=== PATIENT | female | born 1990 | race American Indian/Alaskan Native ===

== ENCOUNTER 2020-07-30 12:06 | Emergency (ER) | payer OTHER ==
[2020-07-30 12:17] VITALS: BP 110/69
--- NOTE | 2020-07-30 12:23 | Event Note ---
ED Screening Note ED Screening Note: called arnulfo Watersier lmp 11- ab 1 ectopic 01/18 co abd l side worse with cough or sneeze no dysruia pos back pain This initial assessment/diagnostic orders/clinical plan/treatment(s) is/are subject to change based on patients health status, clinical progression and re- assessment by fellow clinical providers in the ED. Further treatment and workup at subsequent clinical providers discretion. Patient/guardian urged not to elope from the ED as their condition may be serious if not clinically assessed and managed. Initial orders include: ro ectopic
[2020-07-30 12:49] LABS: Mucus,Urine 3+ /HPF
[2020-07-30 13:35] LABS: Bilirubin,Urine NEG (Negative); Blood,Urine MOD (Negative); Color,Urine Yellow (Yellow); Urobilinogen,Urine < 2.0 mg/dL (<2.0)
[2020-07-30 13:37] LABS: Bacteria,Urine 1+ /HPF (Negative)
[2020-07-30 13:45] LABS: Hematocrit 38.2 % (30.3-42.9); Hemoglobin 12.8 gm/dl (10.1-14.3); Mean Corpuscular HGB Conc 34 % (30-34); Mean Corpuscular Volume 102 fl (79-97); Platelet Count 227 K/mm3 (140-440); Red Blood Count 3.74 M/mm3 (3.65-5.03); Red Cell Distribution Width 14.3 % (13.2-15.2)
--- NOTE | 2020-07-30 13:51 | Ultrasound Report ---
ULTRASOUND OBSTETRIC INDICATION / CLINICAL INFORMATION: Vaginal bleeding. Clinical Gestational Age (GA): 7 weeks weeks. 1 days TECHNIQUE: Transabdominal and Transvaginal. COMPARISON: None available. FINDINGS: GESTATIONAL SAC: Well-defined oval shape and intrauterine in location. YOLK SAC: No significant abnormality. EMBRYO/FETUS: No significant abnormality. - [place]-Rump Length = 0.54 cm = 6 weeks. 2 days - Heart Rate, beats per minute (if present) = 111 ADNEXA: Complex right ovarian cyst measures 2.9 cm and likely represents a corpus luteal cyst. FREE FLUID: None. ADDITIONAL FINDINGS: No evidence of subchorionic hemorrhage. IMPRESSION: 1. Single, living intrauterine with estimated sonographic age of 6 weeks. 2 days. Signer Name: Chaparro King MD Signed: 07/30/2020 1:46 PM Workstation Name: [id number]
--- NOTE | 2020-07-30 13:51 | Ultrasound Report ---
ULTRASOUND OBSTETRIC INDICATION / CLINICAL INFORMATION: Vaginal bleeding. Clinical Gestational Age (GA): 7 weeks weeks. 1 days TECHNIQUE: Transabdominal and Transvaginal. COMPARISON: None available. FINDINGS: GESTATIONAL SAC: Well-defined oval shape and intrauterine in location. YOLK SAC: No significant abnormality. EMBRYO/FETUS: No significant abnormality. - [place]-Rump Length = 0.54 cm = 6 weeks. 2 days - Heart Rate, beats per minute (if present) = 111 ADNEXA: Complex right ovarian cyst measures 2.9 cm and likely represents a corpus luteal cyst. FREE FLUID: None. ADDITIONAL FINDINGS: No evidence of subchorionic hemorrhage. IMPRESSION: 1. Single, living intrauterine with estimated sonographic age of 6 weeks. 2 days. Signer Name: Chaparro King MD Signed: 07/30/2020 1:46 PM Workstation Name: [id number]
[2020-07-30 13:54] LABS: Blood Urea Nitrogen 6 mg/dL (7-17); Calcium 9.4 mg/dL (8.4-10.2); Hemolysis Index 11
--- NOTE | 2020-07-30 13:59 | Emergency Department Report ---
ED Female HPI - General Chief complaint: Abdominal Pain Stated complaint: 6 WEEKS ABD PAIN Time Seen by Provider: 07/30/20 12:17 Source: patient Mode of arrival: Ambulatory Limitations: No Limitations - History of Present Illness Initial comments: LMP 06/10 AB 1 ECTOPIC 1 PT COMES TO ER W 3 D HX ABD PAIN AND SPOTTING WITH URINATION AMBULATORY NON ILL NONTOXIC APPEARING -: Gradual, days(s) Severity: mild Improves with: none Worsens with: none Are you Now?: Yes - Related Data Sexually active: Yes Previous Rx's Medication Instructions Recorded Last Taken Type Nitrofurantoin [place]/M-Cryst 100 mg PO Q12HR #10 capsule 07/30/20 Unknown Rx [Macrobid CAP] Allergies Allergy/AdvReac Type Severity Reaction Status Date / Time ondansetron [From Zofran] Allergy Swelling Verified 07/30/20 12:16 sulfamethoxazole Allergy Swelling Verified 07/30/20 12:16 [From Bactrim] trimethoprim [From Bactrim] Allergy Swelling Verified 07/30/20 12:16 ED Review of Systems ROS: Stated complaint: 6 WEEKS ABD PAIN Other details as noted in HPI Comment: All other systems reviewed and negative ED Past Medical Hx - Past Medical History Previous Medical History?: No - Surgical History Past Surgical History?: No - Family History Family history: no significant - Social History Smoking Status: Never Smoker Substance Use Type: None - Medications Home Medications: Home Medications Medication Instructions Recorded Confirmed Last Taken Type Nitrofurantoin [place]/M-Cryst 100 mg PO Q12HR #10 capsule 07/30/20 Unknown Rx [Macrobid CAP] ED Physical Exam - General Limitations: No Limitations General appearance: alert, in no apparent distress - Head Head exam: Present: atraumatic, normocephalic - Eye Eye exam: Present: normal appearance - ENT ENT exam: Present: mucous membranes moist - Neck Neck exam: Present: normal inspection - Respiratory Respiratory exam: Present: normal lung sounds bilaterally. Absent: respiratory distress - Cardiovascular Cardiovascular Exam: Present: regular rate, normal rhythm. Absent: systolic murmur, diastolic murmur, rubs, gallop - GI/Abdominal GI/Abdominal exam: Present: soft, normal bowel sounds - Extremities Exam Extremities exam: Present: normal inspection - Back Exam Back exam: Present: normal inspection - Neurological Exam Neurological exam: Present: alert, oriented X3 - Psychiatric Psychiatric exam: Present: normal affect, normal mood - Skin Skin exam: Present: warm, dry, intact, normal color. Absent: rash ED Course Vital Signs 07/30/20 12:17 Temperature 98.3 F Pulse Rate 92 H Respiratory 16 Rate Blood Pressure 110/69 O2 Sat by Pulse 97 Oximetry ED Medical Decision Making - Lab Data Result diagrams: 07/30/20 13:04 07/30/20 13:04 - Radiology Data Radiology results: report reviewed, image reviewed IUP - Medical Decision Making Vital Signs 07/30/20 12:17 Temperature 98.3 F Pulse Rate 92 H Respiratory 16 Rate Blood Pressure 110/69 O2 Sat by Pulse 97 Oximetry Lab Results 07/30/20 07/30/20 07/30/20 Range/Units 13:04 13:04 Unknown WBC 5.9 (4.5-11.0) K/mm3 RBC 3.74 (3.65-5.03) M/mm3 Hgb 12.8 (10.1-14.3) gm/dl Hct 38.2 (30.3-42.9) % MCV 102 H (79-97) fl MCH 34 H (28-32) pg MCHC 34 (30-34) % RDW 14.3 (13.2-15.2) % Plt Count 227 (140-440) K/mm3 Sodium 134 L (137-145) mmol/L Potassium 4.3 (3.6-5.0) mmol/L Chloride 101.5 (98-107) mmol/L Carbon Dioxide 26 (22-30) mmol/L Anion Gap 11 mmol/L BUN 6 L (7-17) mg/dL Glucose 86 (65-100) mg/dL Calcium 9.4 (8.4-10.2) mg/dL Urine Color Yellow (Yellow) Urine Turbidity Cloudy (Clear) Urine pH 6.0 (5.0-7.0) Ur Specific [place] 1.023 (1.003-1.030) Urine Protein 30 mg/dl (Negative) mg/dL Urine Glucose (UA) Neg (Negative) mg/dL Urine Ketones Neg (Negative) mg/dL Urine Blood Mod (Negative) Urine Nitrite Neg (Negative) Ur Reducing Substances Not Reportable Urine Bilirubin Neg (Negative) Urine Ictotest Not Reportable Urine Urobilinogen < 2.0 (<2.0) mg/dL Ur Leukocyte Esterase Sm (Negative) Urine WBC (Auto) 6.0 (0.0-6.0) /HPF Urine RBC (Auto) 6.0 (0.0-6.0) /HPF U Epithel Cells (Auto) 43.0 H (0-13.0) /HPF Urine Bacteria (Auto) 1+ (Negative) /HPF Urine Mucus 3+ /HPF Blood Type Ord Rhogam Gestat Weeks WEEKS 07/30/20 Range/Units Unknown WBC (4.5-11.0) K/mm3 RBC (3.65-5.03) M/mm3 Hgb (10.1-14.3) gm/dl Hct (30.3-42.9) % MCV (79-97) fl MCH (28-32) pg MCHC (30-34) % RDW (13.2-15.2) % Plt Count (140-440) K/mm3 Sodium (137-145) mmol/L Potassium (3.6-5.0) mmol/L Chloride (98-107) mmol/L Carbon Dioxide (22-30) mmol/L Anion Gap mmol/L BUN (7-17) mg/dL Glucose (65-100) mg/dL Calcium (8.4-10.2) mg/dL Urine Color (Yellow) Urine Turbidity (Clear) Urine pH (5.0-7.0) Ur Specific [place] (1.003-1.030) Urine Protein (Negative) mg/dL Urine Glucose (UA) (Negative) mg/dL Urine Ketones (Negative) mg/dL Urine Blood (Negative) Urine Nitrite (Negative) Ur Reducing Substances Urine Bilirubin (Negative) Urine Ictotest Urine Urobilinogen (<2.0) mg/dL Ur Leukocyte Esterase (Negative) Urine WBC (Auto) (0.0-6.0) /HPF Urine RBC (Auto) (0.0-6.0) /HPF U Epithel Cells (Auto) (0-13.0) /HPF Urine Bacteria (Auto) (Negative) /HPF Urine Mucus /HPF Blood Type O POSITIVE Ord Rhogam Gestat Weeks Rh pos WEEKS US NOTED LABS NOTED UA NOTED RH POS PT DC HOME WITH OBGYN FOLLOW UP FOR INTERVAL CHANGE PT VEREBALIZES UNDERSTANDING OF DC POC. - Differential Diagnosis RO ECTOPIC/AB Critical care attestation.: If time is entered above; I have spent that time in minutes in the direct care of this critically ill patient, excluding procedure time. ED Disposition Clinical Impression: , Abdominal pain, UTI (urinary tract infection) Disposition: TO HOME OR SELFCARE Is pt being admited?: No Does the pt Need Aspirin: No Condition: Stable Instructions: First Trimester of , Pbno-st-Vbnm, Abdominal Pain (ED) Additional Instructions: VAGINAL REST- NO SEX/ NO TAMPON TYLENOL FOR PAIN NO ALCOHOL SEE OB PLANNED Prescriptions: Nitrofurantoin [place]/M-Cryst [Macrobid CAP] 100 mg PO Q12HR #10 capsule Referrals: LUCY SANTILLAN CNM [Staff Physician] - 3-5 Days ELIZABETH RITCHIE MD [Staff Physician] - 3-5 Days Forms: Work/School Release Form(ED) Time of Disposition: 14:02
[2020-07-30 14:04] LABS: BUN/Creatinine Ratio 10
== END 2020-07-30 14:02 | disposition home or self-care (01) ==
LOC: ED 12:06
DX: O23.41 Unspecified infection of urinary tract in pregnancy, first trimester (principal); O26.891 Other specified pregnancy related conditions, first trimester; R10.9 Unspecified abdominal pain; Z3A.01 Less than 8 weeks gestation of pregnancy; Z79.899 Other long term (current) drug therapy; Z88.8 Allergy status to other drugs, medicaments and biological substances
CPT/HCPCS: 36415; 76801; 76817; 76830; 80048; 81001; 84702; 85027; 86900; 86901; 87086

== ENCOUNTER 2021-01-14 12:33 | Outpatient (CLI) | payer OTHER ==
[2021-01-14] MEDS ORDERED: LACTATED RINGERS 1,000 ML IV ONE (13:05)
[2021-01-14 13:12] VITALS: BP 110/68
[2021-01-14 13:22] LABS: Bacteria,Urine 2+ /HPF (Negative); Bilirubin,Urine NEG (Negative); Blood,Urine NEG (Negative); Color,Urine Yellow (Yellow); Mucus,Urine FEW /HPF; Protein,Urine <15 mg/dL mg/dL (Negative); Urobilinogen,Urine < 2.0 mg/dL (<2.0)
--- NOTE | 2021-01-14 15:20 | Ultrasound Report ---
ULTRASOUND BIOPHYSICAL PROFILE INDICATION / CLINICAL INFORMATION: bpp/tiff. COMPARISON: None available. FINDINGS: BREATHING MOVEMENT = 2 GROSS BODY MOVEMENT = 2 TONE = 2 QUALITATIVE AMNIOTIC FLUID VOLUME = 2 TOTAL BIOPHYSICAL SCORE = 03/07 AMNIOTIC FLUID INDEX (cm) = 16 PRESENTATION: Cephalic. HEART RATE (beats per minute): 170 IMPRESSION: 1. biophysical profile = 03/07 Signer Name: Alex Ramos MD Signed: 01/14/2021 3:07 PM Workstation Name: [email or web address]
== END 2021-01-14 15:30 | disposition home or self-care (01) ==
LOC: TRG 12:33 → APU 12:34 → TRG 15:30
PROVIDERS: ATTEND Obstetrics & Gynecology
DX: Z34.93 Encounter for supervision of normal pregnancy, unspecified, third trimester (principal); Z3A.31 31 weeks gestation of pregnancy
CPT/HCPCS: 59025; 76815; 76819; 81001

== ENCOUNTER 2021-03-07 14:39 | Inpatient (IN) | payer OTHER ==
[2021-03-07] MEDS ORDERED: LACTATED RINGERS 1,000 ML ONE (15:37)
[2021-03-07] MEDS ORDERED: AMPICILLIN/NS 2 GM/100 ML 2 GM/100 ML BAG IV ONE ×2 (15:39→16:00)
[2021-03-07] MEDS ORDERED: miSOPROStol 200 MCG TAB PR PRN (16:00)
[2021-03-07] MEDS ORDERED: OXYTOCIN DRIP 30 UNITS/500 ML BAG IV SCH ×2 (16:00)
[2021-03-07] MEDS ORDERED: LOPERAMIDE 2 MG CAP PO PRN (16:00)
[2021-03-07] MEDS ORDERED: ePHEDrine SULFATE 50 MG/1 ML INJ IV PRN ×2 (16:00→18:25)
[2021-03-07] MEDS ORDERED: BUTORPHANOL 2 MG/1 ML INJ IV PRN (16:00)
[2021-03-07] MEDS ORDERED: TERBUTALINE 1 MG/1 ML INJ SUB-Q PRN (16:00)
[2021-03-07] MEDS ORDERED: METHYLERGONOVINE MALEATE 0.2 MG/ML VIAL IM PRN (16:00)
[2021-03-07] MEDS ORDERED: OXYTOCIN 10 UNIT/1 ML INJ IM PRN (16:00)
[2021-03-07] MEDS ORDERED: CARBOPROST TROMETHAMINE 250 MCG/1 ML INJ IM PRN (16:00)
[2021-03-07] MEDS ORDERED: LIDOCAINE (2%) 20 MG/1 ML VIAL 20 ML MDV INFILTRATI ONE (16:00)
[2021-03-07] MEDS ORDERED: MINERAL OIL 30 ML ORAL LIQD PO PRN (16:00)
[2021-03-07] MEDS ORDERED: LACTATED RINGERS 1,000 ML IV SCH (16:00)
[2021-03-07 16:38] LABS: Hematocrit 35.2 % (30.3-42.9); Mean Corpuscular HGB Conc 34 % (30-34); Mean Corpuscular Volume 92 fl (79-97); Platelet Count 146 K/mm3 (140-440); Red Blood Count 3.85 M/mm3 (3.65-5.03); Red Cell Distribution Width 19.4 % (13.2-15.2)
[2021-03-07] MEDS ORDERED: fentaNYL-BUPIV 2 MCG/ML-0.125% 200 MCG/100 ML BAG EPIDURAL ONE (18:08)
[2021-03-07] MEDS ORDERED: NALOXONE 2 MG/2 ML INJ IV PRN (18:25)
--- NOTE | 2021-03-07 18:26 | Anesthesia Consultation ---
Anesthesia Consult and Med Hx Date of service: 03/07/21 - Airway Anesthetic Teeth Evaluation: Good ROM Head & Neck: Adequate Mental/Hyoid Distance: Adequate Mallampati Class: Class II Intubation Access Assessment: Probably Good - Pulmonary Exam CTA: Yes - Cardiac Exam Cardiac Exam: RRR - Pre-Operative Health Status ASA Pre-Surgery Classification: ASA2 Proposed Anesthetic Plan: Epidural - Pulmonary Hx Asthma: No (l) COPD: No Hx Pneumonia: No - Cardiovascular System Hx Hypertension: No - Central Nervous System Hx Seizures: No Hx Psychiatric Problems: No - Endocrine Hx Renal Disease: No Hx End Stage Renal Disease: No Hx Hypothyroidism: No Hx Hyperthyroidism: No - Hematic Hx Anemia: Yes Hx Sickle Cell Disease: No - Other Systems Hx Alcohol Use: No
--- NOTE | 2021-03-07 18:27 | Progress Note ---
Labor Epidural - Labor Epidural Start Time: 18:13 Stop Time: 18:22 Performed by:: TOREY TAMEZ Procedure: Patient is requesting epidural for labor pain. H&P, and labs reviewed. Procedure explained, questions answered, consent obtained. Patient in sitting position with blood pressure cuff and pulse ox on and working. Timeout performed immediately before start of procedure. Sterile chlorahexadine 0.5% prep/drape. 3 mL 1% lidocaine skin wheal at L[3]-L[4]. 18-gauge Process System Enterprisetead epidural needle advanced to [id number] with saline at [7] cm. Epidural catheter advanced to [12] cm, negative aspiration for blood and csf, negative test dose 3 ml 1.5% lidocaine with epinephrine. Epidural dexmedetomidine [30] mcg administered. Sterile steri-strips and tegaderm applied, followed by tape reinforcement. Patient tolerated procedure well. SRNA
[2021-03-07] MEDS ORDERED: fentaNYL-BUPIV 2 MCG/ML-0.125% 200 MCG/100 ML BAG EPIDURAL SCH (19:00)
--- NOTE | 2021-03-07 19:06 | History and Physical Report ---
History of Present Illness Date of examination: 03/07/21 Date of admission: 03/07 Chief complaint: I am in labor History of present illness: Patient is a 30-year-old 3 para 0 who presents complaining of contractions. Patient is very 7 cm on admission. Her EDC is 03/17/2021. Patient receives care with [facility] however records not available for re view. Past History Past Medical History: no pertinent history Past Surgical History: no surgical history Family/Genetic History: none Social history: single - Obstetrical History Expected Date of Delivery: 03/17/21 Actual Gestation: 38 Week(s) 4 Day(s) : 3 Para: 0 Medications and Allergies Allergies Allergy/AdvReac Type Severity Reaction Status Date / Time ondansetron [From Zofran] Allergy Swelling Verified 07/30/20 12:16 sulfamethoxazole Allergy Swelling Verified 07/30/20 12:16 [From Bactrim] trimethoprim [From Bactrim] Allergy Swelling Verified 07/30/20 12:16 Home Medications Medication Instructions Recorded Confirmed Last Taken Type Nitrofurantoin [place]/M-Cryst 100 mg PO Q12HR #10 capsule 07/30/20 03/07/21 Unknown Rx [Macrobid CAP] Active Meds: Active Medications Butorphanol Tartrate (Butorphanol 2 Mg/1 Ml Inj) 2 mg IV Q2H PRN PRN Reason: Labor Pain Last Admin: 03/07/21 16:48 Dose: 1 mg Documented by: Carboprost Tromethamine (Carboprost Tromethamine 250 Mcg/1 Ml Inj) 250 mcg IM ONCE PRN PRN Reason: Uterine Bleeding Ephedrine Sulfate (Ephedrine Sulfate 50 Mg/1 Ml Inj) 10 mg IV Q2M PRN PRN Reason: Hypotension Oxytocin/Sodium Chloride (Pitocin/Ns 30 Unit/500ml) 30 units in 500 mls @ 2 mls/hr IV TITR LINDSAY; Protocol Last Admin: 03/07/21 18:30 Dose: 2 ml/hr, 2 mls/hr Documented by: Lactated Ringer's (Lactated Ringers) 1,000 mls @ 125 mls/hr IV DIRECT LINDSAY Last Admin: 03/07/21 16:00 Dose: 125 mls/hr Documented by: Oxytocin/Sodium Chloride (Pitocin/Ns 30 Unit/500ml) 30 units in 500 mls @ 40 mls/hr IV TITR LINDSAY; Protocol Ampicillin Sodium (Ampicillin/Ns 1 Gm/50 Ml) 1 gm in 50 mls @ 100 mls/hr IV Q4H LINDSAY; Protocol Fentanyl/Bupivacaine/Sodium Chlor (Fentanyl-Bupiv 2 Mcg/Ml-0.125%) 200 mcg in 100 mls @ 12 mls/hr EPIDURAL TITR LINDSAY; Protocol Loperamide HCl (Loperamide 2 Mg Cap) 2 mg PO ONCE PRN PRN Reason: give with Hemabate Methylergonovine Maleate (Methylergonovine Maleate 0.2 Mg/Ml Vial) 0.2 mg IM ONCE PRN PRN Reason: Uterine Bleeding Mineral Oil (Mineral Oil 30 Ml Oral Liqd) 30 ml PO QHS PRN PRN Reason: Constipation Misoprostol (Misoprostol 200 Mcg Tab) 800 mcg [place] ONCE PRN PRN Reason: Uterine Bleeding Naloxone HCl (Naloxone 2 Mg/2 Ml Inj) 0.2 mg IV Q5M PRN PRN Reason: Respiratory sedation Oxytocin (Oxytocin 10 Unit/1 Ml Inj) 10 unit IM ONCE PRN PRN Reason: Uterine Bleeding Terbutaline Sulfate (Terbutaline 1 Mg/1 Ml Inj) 0.25 mg SUB-Q ONCE PRN PRN Reason: Hyperstimulation/Hypertonicity Review of Systems All systems: negative Constitutional: weight gain Genitourinary: pelvic pain, contractions - Vital Signs Vital signs: Vital Signs Temp Resp 98 F 20 03/07/21 15:15 03/07/21 15:15 Temp Pulse Resp BP Pulse Ox 98.1 F 66 18 112/64 98 03/07/21 16:17 03/07/21 18:52 03/07/21 16:48 03/07/21 18:49 03/07/21 18:52 - Physical Exam Breasts: Cardiovascular: Regular rate, Normal S1, Normal S2 Lungs: Positive: Clear to auscultation, Normal air movement Abdomen: Positive: normal appearance, soft, normal bowel sounds. Negative: distention, tenderness Genitourinary (Female): Positive: normal external genitalia, normal perenium Vulva: both: normal Vagina: Positive: normal moisture. Negative: discharge Cervix: Negative: lesion, discharge Uterus: Positive: normal size, normal contour Adnexa: both: normal Anus/Rectum: Positive: normal perianal skin, heme negative. Negative: rectal mass, hemorrhoids Extremities: Deep Tendon Reflex Grade: Normal +2 - Obstetrical Cervical Dilatation: 7 Cervical Effacement Percentage: 80 station: -1 Uterine Contraction Pattern: Regular Uterine Tone Measurement Phase: Contraction Results Result Diagrams: 03/07/21 15:30 Abnormal lab results 03/07/21 Range/Units 15:30 RDW 19.4 H (13.2-15.2) % All other labs normal. Assessment and Plan IUP at 30-4/7 weeks in labor. Admit to labor and delivery. We will treat for GBS unknown. Attempt to get records in the morning. Anticipate .
[2021-03-07] MEDS ORDERED: AMPICILLIN/NS 1 GM/50 ML 1 GM/50 ML BAG IV SCH (20:00)
--- NOTE | 2021-03-07 20:47 | Procedure Note ---
OB Delivery Note - Delivery Date of Delivery: 03/07/21 Surgeon: LYDIA ALVAREZ Estimated blood loss: 200cc - Vaginal Delivery presentation: vertex Delivery position: OA Intrapartum events: none Delivery induction: none Delivery augmentation: rupture of membranes, pitocin Delivery monitor: external FHT, external uterine Route of delivery: Delivery placenta: spontaneous Delivery cord: nuchal cord, 3 umbilical vessels Delivery laceration: 2nd degree Anesthesia: epidural Delivery comments: Viable male delivered over intact perineum at 8:30/p.m. had tight nuchal cord that was clamped and cut on the perineum. Infant had spontaneous cry and was placed on maternal abdomen. Weight 7 pounds 3 ounces. Apgars 8/9. Placenta was delivered spontaneously and intact with three-vessel cord. Patient had a second laceration that was repaired with 2-0 Vicryl. Excellent hemostasis. Patient tolerated procedure well. - A at 1 minute: 8 at 5 minutes: 9 Gender: Male
[2021-03-07] MEDS ORDERED: PROMETHAZINE 25 MG TAB PO PRN (23:17)
[2021-03-07] MEDS ORDERED: ONDANSETRON 4 MG/2 ML INJ IV PRN (23:17)
[2021-03-07] MEDS ORDERED: diphenhydrAMINE 25 MG CAP PO PRN (23:17)
[2021-03-07] MEDS ORDERED: ACETAMINOPHEN 325 MG TAB PO PRN (23:17)
[2021-03-07] MEDS ORDERED: PROMETHAZINE 25 MG RECT SUPP PR PRN (23:17)
[2021-03-07] MEDS ORDERED: HYDROcodone/ACETAMINOPHEN 5-325 MG TAB PO PRN (23:17)
[2021-03-07] MEDS ORDERED: MAGNESIUM HYDROXIDE (MOM) ORAL LIQD UDC PO PRN (23:17)
[2021-03-07] MEDS ORDERED: LANOLIN/ZINC/DIMETHICONE (LANSINOH) 7 GM TP PRN (23:17)
[2021-03-08] MEDS: WITCH HAZEL/ GLYCERIN PAD TP PRN (00:51)
[2021-03-08] MEDS: DOCUSATE SODIUM 100 MG CAP PO SCH ×3 (00:52→22:36)
[2021-03-08] MEDS: IBUPROFEN 600 MG TAB PO SCH ×3 (00:52→15:22)
--- NOTE | 2021-03-08 08:25 | Progress Note ---
Assessment and Plan A: ~ 12 hrs s/p at term P: Routine care Follow up hemoglobin and hematocrit Anticipate discharge tomorrow Subjective - Subjective Date of service: 03/08/21 Principal diagnosis: s/p at term Interval history: Pt without complaints overnight. Patient reports: appetite normal, voiding normally, pain well controlled, ambulating normally [place]: doing well Objective - Vital Signs Latest vital signs: Vital Signs Temp Pulse Resp BP BP Pulse Ox Pulse Ox 03/08/21 07:05 18 03/08/21 06:16 18 03/08/21 03:56 98.2 F 89 18 112/67 97 03/08/21 01:52 18 03/08/21 00:52 18 03/07/21 23:30 100 03/07/21 23:06 98.6 F 76 18 108/69 97 03/07/21 22:07 65 98 03/07/21 22:02 67 98 03/07/21 21:57 67 97 03/07/21 21:55 65 126/74 03/07/21 21:52 67 98 03/07/21 21:47 65 98 03/07/21 21:42 70 98 03/07/21 21:40 64 135/78 03/07/21 21:39 97.7 F 03/07/21 21:37 67 98 03/07/21 21:32 69 98 03/07/21 21:27 62 99 03/07/21 21:25 76 124/70 03/07/21 21:24 69 89 03/07/21 21:22 70 98 03/07/21 21:17 67 99 03/07/21 21:12 74 98 03/07/21 21:10 74 122/72 03/07/21 21:07 71 99 03/07/21 21:02 75 99 03/07/21 20:57 78 97 03/07/21 20:55 81 126/61 03/07/21 20:52 78 98 03/07/21 20:47 86 97 03/07/21 20:44 107 H 91 03/07/21 20:42 83 98 03/07/21 20:39 78 120/61 03/07/21 20:37 86 99 03/07/21 20:32 100 H 98 03/07/21 20:27 109 H 97 03/07/21 20:23 141 H 146/82 03/07/21 20:22 152 H 97 03/07/21 20:17 136 H 97 03/07/21 20:12 107 H 98 03/07/21 20:09 112 H 130/83 03/07/21 20:07 126 H 98 03/07/21 20:02 109 H 98 03/07/21 19:57 88 98 03/07/21 19:52 107 H 97 03/07/21 19:47 100 H 98 03/07/21 19:42 97 H 96 03/07/21 19:38 75 119/62 03/07/21 19:37 102 H 99 03/07/21 19:33 114 H 91 03/07/21 19:32 84 99 03/07/21 19:28 70 85 03/07/21 19:27 83 99 03/07/21 19:24 76 116/65 03/07/21 19:22 85 98 03/07/21 19:20 89 0 L 03/07/21 19:17 76 98 03/07/21 19:12 63 98 03/07/21 19:08 59 L 121/74 03/07/21 19:07 59 L 98 03/07/21 19:02 61 97 03/07/21 19:00 98 03/07/21 18:57 61 98 03/07/21 18:52 66 98 03/07/21 18:49 67 112/64 03/07/21 18:47 71 98 03/07/21 18:43 68 108/62 03/07/21 18:42 63 98 03/07/21 18:38 65 114/69 03/07/21 18:37 71 98 03/07/21 18:34 80 116/67 03/07/21 18:32 75 97 03/07/21 18:27 83 121/63 98 03/07/21 18:25 80 124/67 03/07/21 18:22 82 115/66 97 03/07/21 18:17 77 97 03/07/21 18:15 103 H 132/78 03/07/21 18:13 76 108/59 03/07/21 18:12 74 97 03/07/21 18:09 76 129/63 03/07/21 18:07 68 141/66 99 03/07/21 18:05 64 117/64 03/07/21 18:03 67 120/66 03/07/21 18:02 73 98 03/07/21 18:00 68 111/59 03/07/21 17:58 69 123/66 03/07/21 17:57 68 98 03/07/21 16:48 18 03/07/21 16:18 69 134/74 03/07/21 16:17 98.1 F 69 16 134/74 03/07/21 15:18 79 116/72 03/07/21 15:15 98 F 20 Intake and Output 03/07/21 03/08/21 03/08/21 22:59 06:59 14:59 Intake Total 0.967 600 Output Total 600 1000 Balance -599.033 -400 Intake: IV 0.967 PITOCin/NS 30 UNIT/500ML 0.967 30 units In 500 ml @ 2 mls/hr IV TITR LINDSAY Rx#: [id number] Oral 480 Intake, Free Water 120 Output: Urine 600 1000 Void 600 1000 Other: Total, Intake Amount 480 Total, Output Amount 600 400 # Voids Void 1 Estimated Blood Loss 200 - Exam Breasts: Present: deferred Abdomen: Present: soft Uterus: Present: fundal height at umbilicus Extremities: Present: normal - Labs Labs: Abnormal lab results 03/07/21 Range/Units 15:30 RDW 19.4 H (13.2-15.2) %
--- NOTE | 2021-03-08 08:27 | Discharge Summary ---
Providers - Providers Date of Admission: 03/07/21 14:59 Date of discharge: 03/09/21 Attending physician: GERALD SANCHEZ 03/08/21 08:00 Consult to Hand Driller [CONS] Routine Reason For Exam: Assistance with Primary care physician: GERALD SNACHEZ Hospitalization Reason for admission: active labor Delivery: Procedure details: Please see delivery note. Episiotomy: none Laceration: 2nd degree Incision: normal Other procedures: none complications: none Discharge diagnosis: IUP at term delivered baby: male Hospital course: Patient was admitted in active labor and went on to have a spontaneous vaginal delivery which she tolerated well. Her course was uncomplicated and she met discharge criteria on day #2. She will follow-up in the office in 4 weeks. Condition at discharge: Stable Disposition: DC-01 TO HOME OR SELFCARE - Discharge Diagnoses (1) Term of male Status: Acute (2) Spontaneous vaginal delivery Status: Acute Plan - Discharge Medications Prescriptions: Ibuprofen [Motrin] 600 mg PO Q6H PRN #30 tablet PRN Reason: Pain - Provider Discharge Summary Activity: routine, no sex for 6 weeks, no heavy lifting 4 weeks, no strenuous exercise Diet: routine Instructions: routine Additional instructions: [] Smoking cessation referral if applicable(refer to patient education folder for contact #) [] Refer to [facility] Booklet Call your doctor immediately for: * Fever > 100.5 * Heavy vaginal bleeding ( >1 pad per hour) * Severe persistent headache * Shortness of breath * Reddened, hot, painful area to leg or breast * Drainage or odor from incision. * Keep incision clean and dry at all times and follow doctor's instructions reg arding bathing/showering - Follow up plan Follow up: [facility] [Advanced Practice Nurse] - 04/06/21 (Please call to schedule your appt )
[2021-03-08 09:31] LABS: Hematocrit 28.9 % (30.3-42.9); Hemoglobin 9.4 gm/dl (10.1-14.3)
[2021-03-08] MEDS ORDERED: PRENATAL VIT27-FE FUMARATE-FOLIC ACID VIT TAB PO SCH (10:00)
--- NOTE | 2021-03-08 15:07 | Post Anesthesia Evaluation ---
- Post Anesthesia Evaluation Patient Participated: Yes Airway Patent: Yes Stable Respiratory Function: Yes Nausea/Vomiting: No Temp > 96.8F: Yes Pain Manageable: Yes Adequeate Hydration: Yes Anesthesia Complications: No Block Receding Appropriately: Yes
[2021-03-09] MEDS: IBUPROFEN 600 MG TAB PO SCH ×2 (00:58→09:05)
[2021-03-09] MEDS: WITCH HAZEL/ GLYCERIN PAD TP PRN (11:42)
[2021-03-09 12:39] VITALS: BP 114/69
== END 2021-03-09 12:40 | disposition home or self-care (01) | DRG 775 ==
LOC: TRG 14:39 → APU 14:40 → TRG 14:59 → LD 14:59 → OB 23:00
PROVIDERS: ADMIT Obstetrics & Gynecology; ATTEND Obstetrics & Gynecology
PROC: 10E0XZZ Delivery of Products of Conception, External Approach (ICD-10-PCS; principal; 2021-03-07)
PROC: 0KQM0ZZ Repair Perineum Muscle, Open Approach (ICD-10-PCS; 2021-03-07)
PROC: 3E0R3BZ Introduction of Anesthetic Agent into Spinal Canal, Percutaneous Approach (ICD-10-PCS; 2021-03-07)
PROC: 00HU33Z Insertion of Infusion Device into Spinal Canal, Percutaneous Approach (ICD-10-PCS; 2021-03-07)
DX: O69.81X0 Labor and delivery complicated by cord around neck, without compression, not applicable or unspecified (principal); O99.02 Anemia complicating childbirth; Z37.0 Single live birth; D64.9 Anemia, unspecified; Z3A.38 38 weeks gestation of pregnancy; O70.1 Second degree perineal laceration during delivery; Z20.822 Contact with and (suspected) exposure to COVID-19
CPT/HCPCS: 36415; 59025; 85014; 85018; 85027; 86592; 86706; 86762; 86850; 86900; 86901; 87806; 96372; G0378; J0290; J0595; J2590; J7120; U0003

== ENCOUNTER 2021-11-12 23:50 | Emergency (ER) | payer OTHER ==
[2021-11-13 01:17] VITALS: BP 118/81
== END 2021-11-13 11:56 | disposition left against medical advice (07) ==
LOC: ED 23:50
DX: R11.10 Vomiting, unspecified (principal); Z53.21 Procedure and treatment not carried out due to patient leaving prior to being seen by health care provider